=== PATIENT | male | born 1995 | race Caucasian/White ===

== ENCOUNTER 2023-11-25 04:49 | Emergency (ER) | payer OTHER ==
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
[2023-11-25 05:58] VITALS: RESP 16
[2023-11-25 07:26] VITALS: BP 138/89; PULSE 84; TEMP 97.2
== END 2023-11-25 07:12 | disposition left against medical advice (07) ==
LOC: EC 04:49
DX: S01.111A Laceration without foreign body of right eyelid and periocular area, initial encounter (principal); Z53.29 Procedure and treatment not carried out because of patient's decision for other reasons; Y09 Assault by unspecified means
CPT/HCPCS: 70450; 70486; 71250; 72125; 74176; 93005; 99284